=== PATIENT | male | born 1975 | race American Indian/Alaskan Native ===

== ENCOUNTER 2019-02-06 07:51 | Emergency (ER) | payer BC ==
[2019-02-06] MEDS ORDERED: PERCOCET 5/325 PO ONE (09:28)
[2019-02-06] MEDS ORDERED: DEPO-Medrol IM ONE (09:28)
[2019-02-06] MEDS ORDERED: TORADOL IM ONE (09:28)
[2019-02-06] MEDS ORDERED: FLEXERIL PO ONE (09:28)
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
[2019-02-06 10:41] VITALS: BP 120/72
== END 2019-02-06 10:38 | disposition home or self-care (01) ==
LOC: ED 07:51
DX: M54.5 Low back pain (principal); G89.29 Other chronic pain; Z98.890 Other specified postprocedural states; Z79.899 Other long term (current) drug therapy
CPT/HCPCS: 96372; 99282; J1040; J1885

== ENCOUNTER 2020-02-07 08:08 | Emergency (ER) | payer SELFPAY ==
[2020-02-07 08:18] VITALS: BP 127/59
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
== END 2020-02-07 09:22 | disposition home or self-care (01) ==
LOC: ED 08:08
DX: S40.011A Contusion of right shoulder, initial encounter (principal); S40.219A Abrasion of unspecified shoulder, initial encounter; Z79.899 Other long term (current) drug therapy; V19.9XXA Pedal cyclist (driver) (passenger) injured in unspecified traffic accident, initial encounter; Y92.410 Unspecified street and highway as the place of occurrence of the external cause; Y93.89 Activity, other specified; Y99.8 Other external cause status
CPT/HCPCS: 99282

== ENCOUNTER 2020-05-12 06:57 | Emergency (ER) | payer SELFPAY ==
[2020-05-12 07:32] VITALS: BP 125/52
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
== END 2020-05-12 08:30 | disposition home or self-care (01) ==
LOC: ED 06:57
DX: T81.89XA Other complications of procedures, not elsewhere classified, initial encounter (principal); Z48.02 Encounter for removal of sutures; X58.XXXD Exposure to other specified factors, subsequent encounter
CPT/HCPCS: 99282